=== PATIENT | female | born 1965 | race Caucasian/White ===

== ENCOUNTER → 2018-06-03 | Outpatient (CLI) | payer BC ==
[~2018-06-03] MED LIST: FIBER TABS625 MG PO; GUMMI BEAR MUL1 EACH PO; IOPAMIDOL 370 MG/ML 200 ML INFUS..BTL INJ ONE; SODIUM CHLORIDE 0.9% 50ML 50 ML ONE
--- NOTE | 2018-06-03 19:02 | Diagnostic Imaging Report ---
EXAMINATION: CT of the abdomen and pelvis with contrast. TECHNIQUE: Spiral CT images of the abdomen and pelvis were performed from the lung bases to the lesser trochanters after the intravenous administration of 100 cc of Isovue 370 and the oral administration of water. Coronal and sagittal reformatted images were obtained. COMPARISON: None. CLINICAL HISTORY:Right upper quadrant pain DISCUSSION: ABDOMEN/PELVIS: LOWER THORAX:Unremarkable. HEPATOBILIARY: No focal hepatic lesions. Mild central intrahepatic biliary ductal prominence. The common bile duct is moderately dilated, measuring 11 mm at the boris hepatis and 10 mm at the pancreatic head. Normal luminal contour, without luminal irregularity. No radiopaque stones are identified. GALLBLADDER: Innumerable peripherally calcified stones are noted in the gallbladder lumen, with the largest measuring approximately 1.1 cm. A 1.0 cm stone is noted in the gallbladder neck. No wall thickening or pericholecystic fluid. SPLEEN: No splenomegaly. PANCREAS: No focal masses or ductal dilatation. ADRENALS: No adrenal nodules. KIDNEYS/URETERS: No hydronephrosis, stones, or solid mass lesions. PELVIC ORGANS/BLADDER: Bladder and uterus are unremarkable. No adnexal masses. PERITONEUM/RETROPERITONEUM: No free air or fluid. LYMPH NODES: No intra-abdominal, retroperitoneal, pelvic or inguinal lymphadenopathy. VESSELS: The celiac trunk,superior and inferior mesenteric and bilateral renal arteries are patent The portal, superior mesenteric and splenic veins are patent. GI TRACT: No bowel dilation or evidence of obstruction. Appendix is well identified and normal in caliber. No pericolonic inflammatory changes. No diverticulosis. BONES AND SOFT TISSUE: No aggressive lytic lesions. Degenerative disc changes predominantly at L4-L5 and L5-S1. Soft tissues are grossly unremarkable. IMPRESSION: 1. Cholelithiasis, without CT evidence of cholecystitis. 2. Mild prominence of the central intrahepatic bile ducts and moderate dilation of the common bile duct. No intraluminal radiopaque stones are identified. Contrast enhanced MRI abdomen/ MRCP is recommended if there is clinical concern for choledocholithiasis. 3. No bowel dilation or evidence of obstruction. Appendix is normal. 4. Findings discussed with Malika Canales PA-C June 03, 2018 at 1855 hours Signed by: Dr. Buddy Greenwood M.D. on 06/03/2018 6:58 PM
== END ==
LOC: CT 16:53
PROVIDERS: ATTEND Family Medicine
DX: R10.11 Right upper quadrant pain (principal); R11.0 Nausea; D72.829 Elevated white blood cell count, unspecified
CPT/HCPCS: 74177; Q9967

== ENCOUNTER 2018-06-06 15:30 | Inpatient (IN) | payer BC ==
[~2018-06-06] VITALS: Ht 170.2 cm; Wt 81.8 kg
--- OUTSIDE RECORDS SUMMARY | 2018-06-06 15:32 | XMS REPORT ---
Author Author [facility] Address Unknown Phone Unavailable Care Team Providers Care Automation Qa Tester Name Role Phone KEAGAN HAM Unavailable Unavailable Problems This patient has no known problems. Allergies, Adverse Reactions, Alerts This patient has no known allergies or adverse reactions. Medications This patient has no known medications. Results Test Description Test Time Test Comments Text Results Atomic Results Result Comments CT ABDOMEN/PELVIS W 2018-06-03 18:48:00 [facility] [address] [address] Patient Name: AVNI IBRAHIM MR #: [id number] : 1965 Age/Sex: 52/F Req #: [id number] Adm Physician: Ordered by: KEAGAN HAM DO Report #: [id number] Location: CT Room/Bed: Procedure: [id number] CT/CT ABDOMEN/PELVIS W Exam Date: 06/03/18 Exam Time: 1810 REPORT STATUS: Signed EXAMINATION: CT of the abdomen and pelvis with contrast. TECHNIQUE: Spiral CT images of the abdomen and pelvis were performed from the lung bases to the lesser trochanters after the intravenous administration of 100 cc of Isovue 370 and the oral administration of water. Coronal and sagittal reformatted images were obtained. COMPARISON: None. CLINICAL HISTORY:Right upper quadrant pain DISCUSSION: ABDOMEN/PELVIS: LOWER THORAX:Unremarkable. HEPATOBILIARY: No focal hepatic lesions. Mild central intrahepatic biliary ductal prominence. The common bile duct is moderately dilated, measuring 11 mm at the boris hepatis and 10 mm at the pancreatic head. Normal luminal contour, without luminal irregularity. No radiopaque stones are identified. GALLBLADDER: Innumerable peripherally calcified stones are noted in the gallbladder lumen, with the largest measuring approximately 1.1 cm. A 1.0 cm stone is noted in the gallbladder neck. No wall thickening or pericholecystic fluid. SPLEEN: No splenomegaly. PANCREAS: No focal masses or ductal dilatation. ADRENALS: No adrenal nodules. KIDNEYS/URETERS: No hydronephrosis, stones, or solid mass lesions. PELVIC ORGANS/BLADDER: Bladder and uterus are unremarkable. No adnexal masses. PERITONEUM/RETROPERITONEUM: No free air or fluid. LYMPH NODES: No intra-abdominal, retroperitoneal, pelvic or inguinal lymphadenopathy. VESSELS: The celiac trunk,superior and inferior mesenteric and bilateral renal arteries are patent The portal, superior mesenteric and splenic veins are patent. GI TRACT: No bowel dilation or evidence of obstruction. Appendix is well identified and normal in caliber. No pericolonic inflammatory changes. No diverticulosis. BONES AND SOFT TISSUE: No aggressive lytic lesions. Degenerative disc changes predominantly at L4-L5 and L5-S1. Soft tissues are grossly unremarkable. IMPRESSION: 1. Cholelithiasis, without CT evidence of cholecystitis. 2. Mild prominence of the central intrahepatic bile ducts and moderate dilation of the common bile duct. No intraluminal radiopaque stones are identified. Contrast enhanced MRI abdomen/ MRCP is recommended if there is clinical concern for choledocholithiasis. 3. No bowel dilation or evidence of obstruction. Appendix is normal. 4. Findings discussed with Malika Canales PA-C June 03, 2018 at 1855 hours Signed by: Dr. Christine Greenwood M.D. on 06/03/2018 6:58 PM Dictated By: CHRISTINE GREENWOOD MD 57 Transcribed By: GWEN on 06/03/181857 COPY TO: KEAGAN HAM DO
[2018-06-06] MEDS ORDERED: SODIUM CHLORIDE 0.9% 1000ML 1,000 ML IV STA ×2 (15:34→18:53)
[2018-06-06] MEDS ORDERED: ONDANSETRON HCL INJ 2MG/ML 2ML 2 MG/ML VIAL IV ONE (15:34)
[2018-06-06] MEDS ORDERED: PANTOPRAZOLE 40 MG 10ML VIAL IV ONE (15:34)
[2018-06-06] MEDS ORDERED: MORPHINE SULFATE 5 MG/ML VIAL IV ONE (15:45)
[2018-06-06] MEDS ORDERED: MORPHINE SULFATE INJ 4 MG/ML INJ 1ML IV ONE (16:00)
[2018-06-06 16:16] LABS: BILIRUBIN,URINE 1+ (NEGATIVE); CLARITY,URINE SL CLOUDY (CLEAR); COLOR,URINE YELLOW (YELLOW); KETONES,URINE TRACE (NEGATIVE); LEUKOCYTE ESTERASE ,URINE TRACE (NEGATIVE); NITRITE,URINE NEGATIVE (NEGATIVE); PROTEIN,URINE DIPSTICK NEGATIVE (NEGATIVE); URINE UROBILINOGEN 0.2 mg/dL (0.2 - 1)
--- NOTE | 2018-06-06 16:18 | Diagnostic Imaging Report ---
EXAMINATION: AP view of the chest COMPARISON: CT abdomen and pelvis 06/03/2018 CLINICAL HISTORY: Abdominal pain DISCUSSION: Lines/tubes: None. Lungs: The lungs are well inflated and clear. There is no evidence of pneumonia or pulmonary edema. Pleura: There is no pleural effusion or pneumothorax. Heart and mediastinum: The cardiomediastinal silhouette is normal. Bones and soft tissues: No acute bony abnormalities. IMPRESSION: No acute cardiopulmonary abnormalities. Signed by: Dr. Ignacio Shin M.D. on 06/06/2018 4:14 PM
[2018-06-06 16:25] LABS: BACTERIA,URINE FEW /HPF; EPITHELIAL CELLS,URINE MODERATE /LPF; MUCUS,URINE MODERATE (RARE); RBC,URINE 0-5 /HPF (0-5); WBC,URINE (MAN) 0-5 /HPF (0-5)
[2018-06-06 16:31] LABS: BASOPHILS # (AUTO) 0.1 (0.0-0.1); BASOPHILS % 0.8 % (0.0-1.0); EOSINOPHILS # (AUTO) 0.1 (0.0-0.4); EOSINOPHILS % 1.6 % (0.0-6.0); HEMATOCRIT 36.1 % (34.2-44.1); HEMOGLOBIN 11.7 g/dL (12.0-16.0); LYMPHOCYTES % 11.6 % (18.0-39.1); MEAN CORPUSCULAR HGB CONC 32.4 g/dL (31-35); MEAN CORPUSCULAR VOLUME 83.4 fL (81-99); MONOCYTES # (AUTO) 0.7 (0.2-0.8); MONOCYTES % 7.9 % (4.4-11.3); NEUTROPHILS # (AUTO) 6.9 (2.1-6.9); NEUTROPHILS % 77.8 % (38.7-80.0); PLATELET COUNT 286 x10e3/uL (140-360); RED BLOOD COUNT 4.33 x10e6/uL (3.6-5.1); RED CELL DISTRIBUTION WIDTH 15.8 % (11.7-14.4)
[2018-06-06 16:46] LABS: INR 0.82; PROTHROMBIN TIME 12.1 seconds (11.9-14.5)
[2018-06-06 16:47] LABS: PARTIAL THROMBOPLASTIN TIME 29.6 seconds (23.8-35.5)
[2018-06-06 16:52] LABS: ALANINE AMINOTRANSFERASE 680 IU/L (0-55); ALBUMIN 3.9 g/dL (3.5-5.0); ALBUMIN/GLOBULIN RATIO 1.1 (0.8-2.0); ALKALINE PHOSPHATASE 325 IU/L (40-150); AMYLASE 74 U/L (25-125); ANION GAP 14.3 mmol/L (8-16); BLOOD UREA NITROGEN 7 mg/dL (7-26); BUN/CREATININE RATIO 9 (6-25); CALCIUM 9.2 mg/dL (8.4-10.2); CARBON DIOXIDE 22 mmol/L (22-29); CHLORIDE 100 mmol/L (98-107); CREATINE KINASE 95 IU/L (29-168); CREATININE, SERUM 0.79 mg/dL (0.57-1.11); EST GLOMERULAR FILTRATION RATE > 60 ML/MIN (60-); GLUCOSE 109 mg/dL (74-118); LIPASE 65 U/L (8-78); POTASSIUM 3.3 mmol/L (3.5-5.1); SODIUM 133 mmol/L (136-145)
[2018-06-06] MEDS: METRONIDAZOLE 500MG/NS 100ML 100 ML IV SCH ×2 (16:52→22:49)
[2018-06-06] MEDS ORDERED: GUMMI BEAR MUL1 EACH PO (17:04)
[2018-06-06] MEDS ORDERED: FIBER TABS625 MG PO (17:04)
--- NOTE | 2018-06-06 17:14 | Diagnostic Imaging Report ---
RIGHT UPPER QUADRANT ULTRASOUND TECHNIQUE: Ultrasound evaluation of the right upper quadrant abdomen. Color Doppler evaluation was utilized to supplement the evaluation. HISTORY: Gallstones COMPARISON: CT of the abdomen June 03, 2018. DISCUSSION: LIVER: No focal lesion identified. The liver measures 15 cm in length in the right mid-clavicular line. BILIARY: Multiple shadowing stones, the largest at the neck measuring 1.1 x 0.6 x 0.9 cm. Mild wall thickening. The sonographic Urban's sign is reported as negative. Common bile duct measures 0.7 cm. RIGHT KIDNEY: 11 cm in length. No hydronephrosis, solid mass, or cystic lesion identified. PANCREAS: Partially obscured by regional bowel gas, but no abnormality identified within this limitation. PERITONEUM: No free fluid. VASCULATURE: Partially obscured by regional bowel gas, but the visualized portions of the aorta and inferior vena cava appear unremarkable. The portal vein is patent with hepatopedal flow. IMPRESSION: 1. Cholelithiasis with mild nonspecific wall thickening and minimal dilation of the common bile duct. 2. As before, a nonemergent MRI with and without contrast (MRCP) would further evaluate for choledocholithiasis. Signed by: Dr. Ramin Covington D.O., M.M.M. on 06/06/2018 5:10 PM
[2018-06-06] MEDS ORDERED: MORPHINE SULFATE 2 MG/ML SYR 1ML IV PRN (17:30)
[2018-06-06] MEDS ORDERED: MORPHINE SULFATE INJ 4 MG/ML INJ 1ML IV PRN (17:45)
[2018-06-06] MEDS: KCL 20MEQ/.9 SOD CHL 1,000 ML IV SCH (17:56)
[2018-06-06] MEDS: PIPER-TAZ 3.375 GM 50 ML IV SCH ×2 (18:40→19:54)
[2018-06-06] MEDS: ONDANSETRON HCL INJ 2MG/ML 2ML 2 MG/ML VIAL IV PRN ×2 (19:06→22:49)
[2018-06-06] MEDS: MORPHINE SULFATE INJ 4 MG/ML INJ 1ML IV PRN ×2 (19:07→22:49)
--- NOTE | 2018-06-06 21:46 | NUR ---
MEDICAL INVESTIGATOR ARELI ASKED TO SPEAK WITH PT ABOUT BED BEING ASSIGNED IN TELE TRACKER AND THEN CHANGED. MEDICAL INVESTIGATOR REFUSED AND CHARGE NURSE AT BEDSIDE SPEAKING WITH PT NOW
--- NOTE | 2018-06-06 21:47 | Diagnostic Imaging Report ---
EXAM: Magnetic Resonance Cholangiopancreatography (M.R.C.P.) INDICATION: EVAL FOR CHOLEDOCHOLITHIASIS COMPARISON: Ultrasound 06/06/2018, CT abdomen and pelvis 06/03/2018 TECHNIQUE: Multiplanar, multisequence MRCP was performed, with sequences including coronal turbo spin-echo T1-weighted scans, [facility] MRCP scans, coronal spin, coronal MPR 2, [facility], [facility] MRCP [place]. IV Contrast: None Oral Contrast: None Medications: None COMPLICATIONS: None FINDINGS: LOWER THORAX: Unremarkable. HEPATOBILIARY: No focal hepatic lesions. No signal loss on out of phase images to indicate steatosis. Mild intrahepatic and common bile duct dilatation. The common bile duct measures 8 mm and tapers distally without filling defects. GALLBLADDER: Numerous gallstones. No wall thickening. SPLEEN: No splenomegaly. PANCREAS: No focal masses or ductal dilatation. ADRENALS: No adrenal nodules KIDNEYS/URETERS: No hydronephrosis. Left renal 9 mm T2 hyperintensity/T1 hypointensity in the interpolar region representing a cyst. GI TRACT: Small hiatal hernia. No abnormal distention, wall thickening, or evidence of bowel obstruction. Appendix is normal. LYMPH NODES: No lymphadenopathy. VESSELS: Flow voids preserved. PERITONEUM / RETROPERITONEUM: No free air or fluid. BONES: No suspicious marrow signal abnormalities. Hemangioma in the T12 vertebral body. Sacral Tarlov cyst. SOFT TISSUES: Unremarkable. IMPRESSION: 1. Cholelithiasis. 2. Mild intrahepatic and extra hepatic biliary ductal dilatation without evidence of choledocholithiasis. Signed by: DR. Akash Luciano MD on 06/06/2018 9:44 PM
[2018-06-07] MEDS: KCL 20MEQ/.9 SOD CHL 1,000 ML IV SCH (02:13)
[2018-06-07] MEDS: ONDANSETRON HCL INJ 2MG/ML 2ML 2 MG/ML VIAL IV PRN (02:13)
[2018-06-07] MEDS: MORPHINE SULFATE INJ 4 MG/ML INJ 1ML IV PRN (02:13)
[2018-06-07] MEDS: PIPER-TAZ 3.375 GM 50 ML IV SCH ×4 (03:55→21:00)
[2018-06-07] MEDS: METRONIDAZOLE 500MG/NS 100ML 100 ML IV SCH ×4 (05:21→23:00)
[2018-06-07 05:23] LABS: BASOPHILS # (AUTO) 0.1 (0.0-0.1); BASOPHILS % 0.9 % (0.0-1.0); EOSINOPHILS # (AUTO) 0.2 (0.0-0.4); EOSINOPHILS % 3.5 % (0.0-6.0); HEMATOCRIT 29.3 % (34.2-44.1); HEMOGLOBIN 9.2 g/dL (12.0-16.0); LYMPHOCYTES # (AUTO) 1.5 (1.0-3.2); LYMPHOCYTES % 25.9 % (18.0-39.1); MEAN CORPUSCULAR HEMOGLOBIN 26.8 pg (28-32); MEAN CORPUSCULAR HGB CONC 31.4 g/dL (31-35); MEAN CORPUSCULAR VOLUME 85.4 fL (81-99); MONOCYTES # (AUTO) 0.7 (0.2-0.8); MONOCYTES % 12.1 % (4.4-11.3); NEUTROPHILS # (AUTO) 3.2 (2.1-6.9); NEUTROPHILS % 57.2 % (38.7-80.0); PLATELET COUNT 208 x10e3/uL (140-360); RED BLOOD COUNT 3.43 x10e6/uL (3.6-5.1); RED CELL DISTRIBUTION WIDTH 16.2 % (11.7-14.4)
[2018-06-07 05:39] LABS: ALANINE AMINOTRANSFERASE 436 IU/L (0-55); ALBUMIN 2.7 g/dL (3.5-5.0); ALKALINE PHOSPHATASE 228 IU/L (40-150); AMYLASE 56 U/L (25-125); ANION GAP 9.8 mmol/L (8-16); BLOOD UREA NITROGEN 7 mg/dL (7-26); BUN/CREATININE RATIO 9 (6-25); CALCIUM 7.9 mg/dL (8.4-10.2); CARBON DIOXIDE 20 mmol/L (22-29); CHLORIDE 112 mmol/L (98-107); CREATININE, SERUM 0.79 mg/dL (0.57-1.11); EST GLOMERULAR FILTRATION RATE > 60 ML/MIN (60-); GLUCOSE 86 mg/dL (74-118); LIPASE 47 U/L (8-78); POTASSIUM 3.8 mmol/L (3.5-5.1); SODIUM 138 mmol/L (136-145)
--- NOTE | 2018-06-07 07:00 | NUR ---
RECEIVED REPORT FROM OFF GOING NURSE. PATIENT IN ROOM IN HOSPITAL BED, AWAKE AND ALERT. NO S/S OF ACUTE DISTRESS. RESP EVEN AND NONLABORED. REPORTS PAIN IS WELL CONTROLLED AT THIS TIME. NPO FOR POSSIBLE PROCEDURE TODAY. PENDING ROOM ASSIGNMENT FOR ADMISSION. BED DOWN CALL LIGHT IN REACH, WHEELS LOCKED. WILL CONTINUE TO MONITOR.
[2018-06-07] MEDS: PANTOPRAZOLE 40 MG 10ML VIAL IV SCH (10:02)
[2018-06-07 11:47] VITALS: BP 115/56
[2018-06-07 11:58] VITALS: BP 115/56
--- NOTE | 2018-06-07 12:09 | NUR ---
Received patient and initial assessment complete. Patient A/O x3, even respirations unlabored on room air. No signs of distress. Abdominal pain 05/26. Bowel sounds active, last BM Wednesday. NPO for possible surgery. Left AC 20 gauge with IV fluids. Ambulatory. Call light in reach, bed in lowest position, wheels locked, side rails up x2, will continue to monitor.
[2018-06-07 12:56] VITALS: BP 115/56
--- NOTE | 2018-06-07 15:20 | NUR ---
Visit made by the Spiritual Care Department Pastoral Visitor, Anne Suárez. PV provided pastoral presence, prayer, hospitality, and supportive listening. Pastoral Visitor informed pt/family of the scope of [employer] and availability. LIZBETH SHOEMAEKR [employer] Spiritual Care Department O: [phone] Pager: [phone] ([phone] calling from)
[2018-06-07 16:12] VITALS: BP 101/54
--- NOTE | 2018-06-07 16:30 | NUR ---
Patient ok to have ice chips.
[2018-06-07] MEDS: DEXTROSE 5%/LACTATED RINGERS 1,000 ML IV SCH (18:32)
[2018-06-07 20:08] VITALS: BP 117/56
[2018-06-08] VITALS (8 sets, daily range): BP systolic 96–127; BP diastolic 50–67
[2018-06-08] MEDS: PIPER-TAZ 3.375 GM 50 ML IV SCH ×4 (03:45→20:18)
[2018-06-08] MEDS: DEXTROSE 5%/LACTATED RINGERS 1,000 ML IV SCH ×2 (04:15→14:15)
[2018-06-08] MEDS: METRONIDAZOLE 500MG/NS 100ML 100 ML IV SCH ×4 (05:03→22:54)
[2018-06-08 06:13] LABS: BASOPHILS # (AUTO) 0.1 (0.0-0.1); BASOPHILS % 0.8 % (0.0-1.0); EOSINOPHILS # (AUTO) 0.2 (0.0-0.4); EOSINOPHILS % 3.8 % (0.0-6.0); HEMATOCRIT 30.8 % (34.2-44.1); HEMOGLOBIN 9.9 g/dL (12.0-16.0); LYMPHOCYTES # (AUTO) 1.5 (1.0-3.2); LYMPHOCYTES % 24.2 % (18.0-39.1); MEAN CORPUSCULAR HEMOGLOBIN 26.8 pg (28-32); MEAN CORPUSCULAR HGB CONC 32.1 g/dL (31-35); MEAN CORPUSCULAR VOLUME 83.5 fL (81-99); MONOCYTES # (AUTO) 0.6 (0.2-0.8); NEUTROPHILS # (AUTO) 3.9 (2.1-6.9); NEUTROPHILS % 60.9 % (38.7-80.0); PLATELET COUNT 210 x10e3/uL (140-360); RED BLOOD COUNT 3.69 x10e6/uL (3.6-5.1); RED CELL DISTRIBUTION WIDTH 16.2 % (11.7-14.4)
[2018-06-08 06:36] LABS: ALANINE AMINOTRANSFERASE 372 IU/L (0-55); ALBUMIN/GLOBULIN RATIO 1.1 (0.8-2.0); ALKALINE PHOSPHATASE 246 IU/L (40-150); ANION GAP 10.7 mmol/L (8-16); BLOOD UREA NITROGEN 8 mg/dL (7-26); BUN/CREATININE RATIO 11 (6-25); CALCIUM 8.5 mg/dL (8.4-10.2); CARBON DIOXIDE 22 mmol/L (22-29); CHLORIDE 107 mmol/L (98-107); EST GLOMERULAR FILTRATION RATE > 60 ML/MIN (60-); GLUCOSE 91 mg/dL (74-118); POTASSIUM 3.7 mmol/L (3.5-5.1); SODIUM 136 mmol/L (136-145)
[2018-06-08] MEDS: PANTOPRAZOLE 40 MG 10ML VIAL IV SCH (09:03)
--- NOTE | 2018-06-08 09:03 | NUR ---
ASSESSMENT COMPLETE NO DISTRESS NOTED, UPDATED ON POC VOICED UNDERSTANDING, DENIES PAIN AT THIS TIME, IVF INFUSING TO L AC 20G NO SS OF INFILTRATION NOTED, NO OTHER CO VOICED CALL LIGHT IN REACH WILL CONTINUE OT MONITOR
--- NOTE | 2018-06-08 11:40 | NUR ---
DOWN TO OR LEFT IN STABLE CONDITION
[2018-06-08] MEDS ORDERED: BUPIVACAINE 0.25%/EPI 30ML SDV INJ ONE (12:19)
[2018-06-08] MEDS ORDERED: IOPAMIDOL 610MG/1ML 300 MG/ML VIAL IV ONE (12:19)
[2018-06-08] MEDS ORDERED: ACETAMINOPHEN 1000 MG/100 ML 100 ML IV ONE (13:09)
[2018-06-08] MEDS ORDERED: METOCLOPRAMIDE HCL 10 MG/2ML VIAL ONE (14:27)
[2018-06-08] MEDS ORDERED: ONDANSETRON HCL INJ 2MG/ML 2ML 2 MG/ML VIAL ONE ×2 (14:27→20:04)
[2018-06-08] MEDS ORDERED: FENTANYL CITRATE/PF 100MCG/2 ML INJ ONE ×2 (14:33→18:10)
[2018-06-08] MEDS ORDERED: PROMETHAZINE HCL (IM) 25 MG/ML VIAL ONE (14:40)
--- NOTE | 2018-06-08 14:50 | Operative Report ---
DATE OF PROCEDURE: June 08, 2018 PREOPERATIVE DIAGNOSES 1. Cholecystitis and cholelithiasis. 2. Jaundice. 3. Rule out choledocholithiasis. POSTOPERATIVE DIAGNOSIS: Cholecystitis and cholelithiasis. No common bile duct stones. OPERATIONS PERFORMED 1. Laparoscopic cholecystectomy. 2. Intraoperative cholangiogram. BURLAP ROLL COVERER: Dr. Willy Loomis ANESTHESIA: General endotracheal. COMPLICATIONS: None. ESTIMATED BLOOD LOSS: Minimal. DESCRIPTION OF PROCEDURE: With the patient lying in bed in the supine position under good general endotracheal anesthesia, the abdomen was prepped with Betadine solution and draped in the usual manner. A Veress needle was introduced into the umbilicus. A pneumoperitoneum was established without any difficulty. An 11-mm trocar was placed into the umbilicus and a 10 mm video laparoscope was placed into the intra-abdominal cavity. Under direct vision, three 5-mm trocars were placed in the right subcostal region. Video laparoscopy at this point was positive for the fact that the gallbladder was thick-walled and covered up with very dense adhesions. The gallbladder was just chocked full of stones. However, the adhesions to the gallbladder were then slowly and carefully taken down all the way down to the neck. There were numerous stones impacted at the neck of the gallbladder. The peritoneum overlying the neck of the gallbladder was then opened and the cystic duct was identified. The cystic duct was followed to its junction with the common duct. Cystic duct was then circumferentially dissected and a clip was placed at the neck of the gallbladder. A small opening was then made into the cystic duct and a cholangiocath was introduced. Under fluoroscopy, half-strength dye was introduced into the biliary tree. This showed free flow of dye into the duodenum. A rather small distal common bile duct, but no retained common bile duct stones. The patient obviously must have recently passed a stone. The biliary tree was somewhat distended and the cystic duct was inserted into the left side of the common duct. The cholangiocatheter was then removed and the cystic duct was then doubly clipped and divided. The cystic artery was similarly doubly clipped and divided. The gallbladder was then slowly and carefully taken off of the liver bed using the cautery scissors. The gallbladder was then grasped through the umbilical port and removed without any difficulty. Video laparoscopy was then again carried out. The liver bed was found to be perfectly dry. All the excess fluid was aspirated. The pneumoperitoneum was evacuated and all the trocars were removed under direct vision. The midline fascia at the umbilicus was then closed with a figure-of-8 of 0 Vicryl. All layers were infiltrated on the way out with a solution of 0.25% Marcaine. Subcutaneous tissue was approximated with 3-0 Vicryl and the skin was closed with subcuticular 5-0 Vicryl. Benzoin, Steri-Strips and Band-Aids were applied. The sponge, lap and needle count was correct. The patient tolerated the procedure well and returned to the recovery room in stable condition. Job#: [id number] KATHY
[2018-06-08] MEDS: MORPHINE SULFATE INJ 4 MG/ML INJ 1ML IV PRN (16:33)
[2018-06-08] MEDS: ONDANSETRON HCL INJ 2MG/ML 2ML 2 MG/ML VIAL IV PRN (16:34)
[2018-06-08] MEDS ORDERED: MIDAZOLAM HCL 2 MG/2 ML VIAL ONE (18:10)
--- NOTE | 2018-06-08 19:05 | NUR ---
Received patient awake on bed, with ongoing IV fluids, not in distress, no complaints of pain at this time. Call light within easy reach, advised to call for assistance, will continue to monitor
[2018-06-08] MEDS ORDERED: GLYCOPYRROLATE INJ 1MG/ 5 ML SYR ONE (20:04)
[2018-06-08] MEDS ORDERED: SEVOFLURANE INHAL SOLN 250 ML PEN BTL ONE (20:04)
[2018-06-08] MEDS ORDERED: LIDOCAINE HCL 2% LOCAL INJ 5 ML SDV VIAL INJ ONE (20:04)
[2018-06-08] MEDS ORDERED: PROPOFOL IV EMULSION 10 MG/ML 20 ML VIAL ONE (20:04)
[2018-06-08] MEDS ORDERED: ROCURONIUM BROMIDE 10 MG/ML 5ML VIAL ONE (20:04)
[2018-06-08] MEDS ORDERED: NEOSTIGMINE 5 MG/5ML SYR ONE (20:04)
[2018-06-08] MEDS ORDERED: DEXAMETHASONE SOD PHOS INJ 4 MG/ML VIAL ONE (20:04)
[2018-06-08] MEDS: HYDROCODONE/APAP 7.5MG-325MG 1 EA TAB PO PRN (20:18)
[2018-06-09] VITALS: BP 117/56
[2018-06-09] MEDS: HYDROCODONE/APAP 7.5MG-325MG 1 EA TAB PO PRN ×3 (00:38→11:14)
[2018-06-09] MEDS: DEXTROSE 5%/LACTATED RINGERS 1,000 ML IV SCH (00:38)
[2018-06-09 04:00] VITALS: BP 113/62
[2018-06-09] MEDS: PIPER-TAZ 3.375 GM 50 ML IV SCH ×2 (04:09→08:51)
[2018-06-09] MEDS: METRONIDAZOLE 500MG/NS 100ML 100 ML IV SCH ×2 (05:11→11:00)
[2018-06-09 05:31] LABS: BASOPHILS # (AUTO) 0.1 (0.0-0.1); BASOPHILS % 0.5 % (0.0-1.0); EOSINOPHILS # (AUTO) 0.1 (0.0-0.4); EOSINOPHILS % 1.3 % (0.0-6.0); HEMATOCRIT 29.6 % (34.2-44.1); HEMOGLOBIN 9.5 g/dL (12.0-16.0); LYMPHOCYTES # (AUTO) 1.4 (1.0-3.2); LYMPHOCYTES % 13.3 % (18.0-39.1); MEAN CORPUSCULAR HEMOGLOBIN 26.8 pg (28-32); MEAN CORPUSCULAR HGB CONC 32.1 g/dL (31-35); MEAN CORPUSCULAR VOLUME 83.4 fL (81-99); MONOCYTES # (AUTO) 0.8 (0.2-0.8); MONOCYTES % 8.1 % (4.4-11.3); NEUTROPHILS # (AUTO) 7.8 (2.1-6.9); NEUTROPHILS % 76.3 % (38.7-80.0); PLATELET COUNT 228 x10e3/uL (140-360); RED BLOOD COUNT 3.55 x10e6/uL (3.6-5.1); RED CELL DISTRIBUTION WIDTH 16.3 % (11.7-14.4)
[2018-06-09 05:49] LABS: ALANINE AMINOTRANSFERASE 314 IU/L (0-55); ALBUMIN/GLOBULIN RATIO 1.2 (0.8-2.0); ALKALINE PHOSPHATASE 209 IU/L (40-150); ANION GAP 9.8 mmol/L (8-16); BLOOD UREA NITROGEN 5 mg/dL (7-26); BUN/CREATININE RATIO 6 (6-25); CALCIUM 8.4 mg/dL (8.4-10.2); CARBON DIOXIDE 26 mmol/L (22-29); CHLORIDE 109 mmol/L (98-107); CREATININE, SERUM 0.78 mg/dL (0.57-1.11); EST GLOMERULAR FILTRATION RATE > 60 ML/MIN (60-); GLUCOSE 127 mg/dL (74-118); POTASSIUM 3.8 mmol/L (3.5-5.1); SODIUM 141 mmol/L (136-145)
[2018-06-09 08:40] VITALS: BP 113/54
[2018-06-09] MEDS: PANTOPRAZOLE 40 MG 10ML VIAL IV SCH (08:51)
--- NOTE | 2018-06-09 08:51 | NUR ---
assessment complete no distress noted, updated on poc vocied understanding, deneis pain, ivf infusing to r ac 18g no ss of infiltration noted, no other co voiced call light in reach will continue to monitor
[2018-06-09 12:38] VITALS: BP 105/58
[2018-06-09] MEDS ORDERED: LEVAQUIN500 MG PO (12:44)
[2018-06-09] MEDS ORDERED: TYLENOL WITH C1 EACH PO (12:44)
--- NOTE | 2018-06-15 10:01 | Diagnostic Imaging Report ---
PROCEDURE: INTRAOPERATIVE CHOLANGIOGRAM COMPARISON: None INDICATIONS: Cholecystitis TECHNIQUE: Intraoperative cholangiogram was performed by Dr. Angelique Loomis. A total of 4 abdominal spot radiographs from the procedure were made available for evaluation. FINDINGS:Cannulation of the cystic duct remnant was accomplished with injection of contrast. No intrahepatic or extrahepatic intraluminal filling defects are noted. Free spill into the duodenum is present. Fluoroscopy time: 0.5 seconds Air Kerma: 8.50 mGy Dose area product: 157.60 uGy*m* IMPRESSION: Negative intraoperative cholangiogram. Darrel Wilson D.O. Dictated by: Darrel Wilson D.O. on 06/15/2018 at 10:13 Electronically approved by: Darrel Wilson D.O. on 06/15/2018 at 10:13
== END 2018-06-09 13:25 | disposition home or self-care (01) | DRG 418 ==
LOC: ER 15:30 → ERHOLD 17:47 → MED/SURG 06-07 11:34
PROVIDERS: ADMIT Surgery; ATTEND Surgery
PROC: BF101ZZ Fluoroscopy of Bile Ducts using Low Osmolar Contrast (ICD-10-PCS; 2018-06-08)
PROC: 0FT44ZZ Resection of Gallbladder, Percutaneous Endoscopic Approach (ICD-10-PCS; principal; 2018-06-08 12:35)
DX: K80.11 Calculus of gallbladder with chronic cholecystitis with obstruction (principal); R17 Unspecified jaundice; K82.8 Other specified diseases of gallbladder
CPT/HCPCS: 36415; 71045; 74181; 74300; 76705; 80053; 81001; 81025; 82150; 82550; 82553; 83605; 83690; 83735; 84484; 85025; 85610; 85730; 87040; 87086; 88304; 99284; C1766; J1100; J2001; J2250; J2270; J2405; J2543; J2550; J2765; J7030